=== PATIENT | female | born 1990 | race Caucasian/White ===

== ENCOUNTER 2020-10-28 07:00 | Emergency (ER) | payer BC ==
[~2020-10-28] VITALS: Ht 167.7 cm; Wt 81.3 kg
[2020-10-28] MEDS ORDERED: DICYCLOMINE 10 MG/ML (BENTYL) 2 ML AMP IM STA (07:16)
--- NOTE | 2020-10-28 07:20 | ED Abdominal Pain ---
General Stated Complaint: ABD PAIN Source of Information: Patient Exam Limitations: No Limitations History of Present Illness Date Seen by Provider: Oct 28, 2020 Time Seen by Provider: 07:10 Initial Comments Patient is a 30-year-old female who presents to the emergency department today with a chief complaint of epigastric and right upper quadrant abdominal pain onset at about 3 AM this morning. Patient states she woke up with the pain as well as some nausea. Patient states the pain is about a "10". Patient did not take any medications for the pain. She has had brief episodes similar to this in the past but nothing that has lasted quite this long. Patient has had 2 prior C-sections. She states she ate roast beef for dinner last night with some cheese. She denies vomiting. She had normal bowel movements yesterday, nonblack nonbloody. She denies any urinary complaints. She states nothing makes the pain any better really except for getting up and trying to walk around. She denies fevers, chills, productive cough shortness of breath. All other review of systems reviewed and negative except as stated above. Timing/Duration: 4-6 Hours Severity/Quality: Severe, Aching Location: RUQ, Epigastric Radiation: Back Activities at Onset: None Associated Symptoms: Nausea/Vomiting (Nausea without vomiting) Allergies and Home Medications Allergies Coded Allergies: No Known Drug Allergies (Unverified , 10/28/20) Patient Home Medication List Home Medication List Reviewed: Yes Review of Systems Review of Systems Constitutional: see HPI EENTM: No Symptoms Reported Respiratory: No Symptoms Reported Cardiovascular: No Symptoms Reported Gastrointestinal: Abdominal Pain, Nausea Genitourinary: No Symptoms Reported Musculoskeletal: no symptoms reported Skin: no symptoms reported All Other Systems Reviewed Negative Unless Noted: Yes Physical Exam Vital Signs Vital Signs - First Documented 10/28/20 07:08 Temp 37.0 Pulse 70 Resp 18 B/P (MAP) 139/101 (114) Pulse Ox 97 O2 Delivery Room Air Capillary Refill : Height/Weight/BMI Height: '" Weight: lbs. oz. kg; BMI Method: General Appearance: WD/WN, no apparent distress HEENT: PERRL/EOMI Neck: full range of motion Respiratory: lungs clear, normal breath sounds, no respiratory distress, no accessory muscle use Cardiovascular: regular rate, rhythm Gastrointestinal: normal bowel sounds, soft, tenderness (Right upper quadrant and epigastric tenderness without Le sign) Extremities: normal range of motion, normal inspection Neurologic/Psychiatric: alert, normal mood/affect, oriented x 3 Skin: normal color, warm/dry Progress/Results/Core Measures Results/Orders Lab Results Laboratory Tests Test 10/28/20 07:17 10/28/20 07:25 Range/Units White Blood Count 5.6 4.3-11.0 10^3/uL Red Blood Count 4.26 3.80-5.11 10^6/uL Hemoglobin 9.8 L 11.5-16.0 g/dL Hematocrit 32 L 35-52 % Mean Corpuscular Volume 74 L 80-99 fL Mean Corpuscular Hemoglobin 23 L 25-34 pg Mean Corpuscular Hemoglobin Concent 31 L 32-36 g/dL Red Cell Distribution Width 15.7 H 10.0-14.5 % Platelet Count 221 130-400 10^3/uL Mean Platelet Volume 10.7 9.0-12.2 fL Immature Granulocyte % (Auto) 0 % Neutrophils (%) (Auto) 60 42-75 % Lymphocytes (%) (Auto) 27 12-44 % Monocytes (%) (Auto) 10 0-12 % Eosinophils (%) (Auto) 2 0-10 % Basophils (%) (Auto) 2 0-10 % Neutrophils # (Auto) 3.3 1.8-7.8 10^3/uL Lymphocytes # (Auto) 1.5 1.0-4.0 10^3/uL Monocytes # (Auto) 0.5 0.0-1.0 10^3/uL Eosinophils # (Auto) 0.1 0.0-0.3 10^3/uL Basophils # (Auto) 0.1 0.0-0.1 10^3/uL Immature Granulocyte # (Auto) 0.0 0.0-0.1 10^3/uL Sodium Level 140 135-145 MMOL/L Potassium Level 4.0 3.6-5.0 MMOL/L Chloride Level 107 98-107 MMOL/L Carbon Dioxide Level 22 21-32 MMOL/L Anion Gap 11 5-14 MMOL/L Blood Urea Nitrogen 10 7-18 MG/DL Creatinine 0.90 0.60-1.30 MG/DL Estimat Glomerular Filtration Rate > 60 BUN/Creatinine Ratio 11 Glucose Level 102 70-105 MG/DL Calcium Level 9.6 8.5-10.1 MG/DL Corrected Calcium 9.3 8.5-10.1 MG/DL Total Bilirubin 0.5 0.1-1.0 MG/DL Aspartate Amino Transf (AST/SGOT) 11 5-34 U/L Alanine Aminotransferase (ALT/SGPT) 10 0-55 U/L Alkaline Phosphatase 37 L 40-136 U/L Total Protein 7.5 6.4-8.2 GM/DL Albumin 4.4 3.2-4.5 GM/DL Lipase 33 8-78 U/L Urine Test NEGATIVE NEGATIVE My Orders Orders - CATIE REYNA MD Ed Iv/Invasive Line Start (10/28/20 07:16) Cbc With Automated Diff (10/28/20 07:16) Comprehensive Metabolic Panel (10/28/20 07:16) Lipase (10/28/20 07:16) Hcg,Qualitative Urine (10/28/20 07:16) Dicyclomine Injection (Bentyl Injection) (10/28/20 07:16) Ondansetron Injection (Zofran Injectio (10/28/20 07:30) Medications Given in ED Current Medications Medications Dose Ordered Sig/Sherin Route Start Time Stop Time Status Last Admin Dose Admin Ondansetron HCl 4 mg ONCE ONCE IVP 10/28/20 07:30 10/28/20 07:31 DC 10/28/20 07:27 4 MG Vital Signs/I&O 10/28/20 07:08 Temp 37.0 Pulse 70 Resp 18 B/P (MAP) 139/101 (114) Pulse Ox 97 O2 Delivery Room Air Progress Progress Note : Time: 08:26 Progress Note Patient feels better after Bentyl and Zofran. Her pain is not completely relieved but is much improved. Patient's labs have been reviewed and are all within normal limits. Her exam is benign, no Le sign, negative peritoneal findings. Patient will be discharged home with a prescription for Zofran and Bentyl. She is advised to follow-up with Christine Thrasher NP her primary care provider for outpatient gallbladder ultrasound. She is given good return precautions. She verbalizes understanding. All questions are sought and answered. Patient is stable for discharge. Departure Impression Primary Impression: Abdominal pain Qualified Codes: R10.11 - Right upper quadrant pain Additional Impression: Biliary colic Disposition: 01 HOME, SELF-CARE Condition: Stable Departure-Patient Inst. Decision time for Depature: 08:27 Referrals: AURORA JAY MD (PCP) Primary Care Physician VERONA THRASHER APRN (Family) Primary Care Physician Patient Instructions: Gallbladder Diet Add. Discharge Instructions: Follow a low-fat diet over the course of the next few weeks while you are foll owing up with your primary care provider. Take the Bentyl every 6 hours, 30 minutes before eating and at bedtime as needed for pain. I have given you a prescription for Zofran, this is a nausea medication that can be taken once every 6-8 hours as needed for nausea and vomiting. Come back to the emergency room for any worsening pain especially with fever, vomiting or any other emergent, concerning symptoms. Scripts Dicyclomine HCl (Dicyclomine HCl) 20 Mg Tablet 20 MG PO Q6H PRN for abdominal pain, #60 TAB Prov: CATIE REYNA MD 10/28/20 Ondansetron (Ondansetron Odt) 4 Mg Tab.rapdis 4 MG PO Q8H for nausea, #20 TAB Prov: CATIE REYNA MD 10/28/20 CATIE REYNA MD Oct 28, 2020 07:20
[2020-10-28 07:29] LABS: BASOPHILS # (AUTO) 0.1 10^3/uL (0.0-0.1); BASOPHILS % (AUTO) 2 % (0-10); EOSINOPHILS # (AUTO) 0.1 10^3/uL (0.0-0.3); EOSINOPHILS % (AUTO) 2 % (0-10); HEMATOCRIT 32 % (35-52); HEMOGLOBIN 9.8 g/dL (11.5-16.0); LYMPHOCYTES # (AUTO) 1.5 10^3/uL (1.0-4.0); LYMPHOCYTES % (AUTO) 27 % (12-44); MEAN CORPUSCULAR HEMOGLOBIN 23 pg (25-34); MEAN CORPUSCULAR HGB CONC 31 g/dL (32-36); MEAN CORPUSCULAR VOLUME 74 fL (80-99); MEAN PLATELET VOLUME 10.7 fL (9.0-12.2); MONOCYTES # (AUTO) 0.5 10^3/uL (0.0-1.0); MONOCYTES % (AUTO) 10 % (0-12); NEUTROPHILS # (AUTO) 3.3 10^3/uL (1.8-7.8); NEUTROPHILS % (AUTO) 60 % (42-75); PLATELET COUNT 221 10^3/uL (130-400); WHITE BLOOD COUNT 5.6 10^3/uL (4.3-11.0)
[2020-10-28] MEDS ORDERED: ONDANSETRON 4 MG/2 ML (SDV) Z0FRAN IVP ONE (07:30)
[2020-10-28 07:41] LABS: ALBUMIN 4.4 GM/DL (3.2-4.5); CHLORIDE 107 MMOL/L (98-107); SODIUM 140 MMOL/L (135-145)
[2020-10-28 07:43] LABS: CALCIUM 9.6 MG/DL (8.5-10.1)
[2020-10-28 07:44] LABS: GLUCOSE 102 MG/DL (70-105); TOTAL PROTEIN 7.5 GM/DL (6.4-8.2)
[2020-10-28 07:45] LABS: CARBON DIOXIDE 22 MMOL/L (21-32)
[2020-10-28 07:46] LABS: BILIRUBIN,TOTAL 0.5 MG/DL (0.1-1.0)
[2020-10-28 07:47] LABS: ALKALINE PHOSPHATASE 37 U/L (40-136); GFR ESTIMATED > 60
[2020-10-28 07:48] LABS: BUN/CREATININE RATIO 11
[2020-10-28 07:50] LABS: ALANINE AMINOTRANSFERASE 10 U/L (0-55)
[2020-10-28 07:51] LABS: LIPASE 33 U/L (8-78)
[2020-10-28] MEDS ORDERED: ONDA4TAB11 PO (08:30)
[2020-10-28] MEDS ORDERED: DICY20TA10 PO (08:30)
[2020-10-28 08:42] VITALS: BP 131/82
[2020-10-28] MEDS ORDERED: LACTATED RINGERS 1,000 ML IV PRN (14:15)
[2020-10-28] MEDS ORDERED: ACHD5005 PO (15:31)
== END 2020-10-28 08:42 | disposition home or self-care (01) ==
LOC: ER 07:03
DX: K80.50 Calculus of bile duct without cholangitis or cholecystitis without obstruction (principal)
CPT/HCPCS: 36415; 80053; 83690; 84703; 85025

== ENCOUNTER 2020-10-28 11:16 | Observation (INO) | payer BC ==
[2020-10-28] VITALS (10 sets, daily range): BP systolic 114–132; BP diastolic 68–89
[~2020-10-28] VITALS: Ht 167 cm; Wt 79.8 kg
[~2020-10-28 11:16] MED LIST: DICY20TA10 PO; ONDA4TAB11 PO
--- NOTE | 2020-10-28 11:38 | ED Abdominal Pain ---
General Chief Complaint: Abdominal/GI Problems Stated Complaint: ABD PAIN Nursing Triage Note: AMB TO ROOM WAS DISCHARGE THIS AM FROM ED WITH ABD PAIN BACK NOW REPORTS VOMITED X1 AFTER EATING OATMEAL NOW HAVING PAIN IN BACK Sepsis Screen: No Definite Risk Source of Information: Patient Exam Limitations: No Limitations History of Present Illness Date Seen by Provider: Oct 28, 2020 Time Seen by Provider: 11:28 Initial Comments Patient is a 30-year-old female who presents to the emergency department with a chief complaint of epigastric and right upper quadrant abdominal pain. Patient was seen by me approximately 3 hours prior to this visit with similar complaints including nausea. Patient states that after she was discharged from the emergency room she went and got her prescriptions filled, she states she went home and ate some oatmeal with water and the pain recurred and is worse than it was previously. Patient is quite tearful and upset. She states the pain is a "10". Nothing makes it any better nothing could make it any worse. She states the pain is radiating straight through into her back. Labs again were reviewed from her previous visit, she had no elevated white blood cell count she was mildly anemic with a hemoglobin of 9. Liver functions including total bili were all within normal limits. However, secondary to the patient's return to the emergency room I will get the gallbladder ultrasound to rule out an acute obstruction such as stone stuck in the neck of the gallbladder. All other review of systems reviewed and negative except as stated above. Timing/Duration: 1 Hour Severity/Quality: Severe, Sharp, Stabbing, Throbbing Location: RUQ, Epigastric Radiation: Back Activities at Onset: None Associated Symptoms: Nausea/Vomiting (Nausea without vomiting) Allergies and Home Medications Allergies Coded Allergies: No Known Drug Allergies (Unverified , 10/28/20) Home Medications Dicyclomine HCl 20 Mg Tablet, 20 MG PO Q6H PRN for abdominal pain Prescribed by: CATIE REYNA on 10/28/20829 Ondansetron 4 Mg Tab.rapdis, 4 MG PO Q8H Prescribed by: CATIE REYNA on 10/28/20829 Patient Home Medication List Home Medication List Reviewed: Yes Review of Systems Review of Systems Constitutional: see HPI EENTM: No Symptoms Reported Respiratory: No Symptoms Reported Cardiovascular: No Symptoms Reported Gastrointestinal: Abdominal Pain, Nausea Genitourinary: No Symptoms Reported Musculoskeletal: no symptoms reported Skin: no symptoms reported Psychiatric/Neurological: Anxiety All Other Systems Reviewed Negative Unless Noted: Yes Past Fxkqbcj-Gbntvo-Vhdwoo Hx Patient Social History Alcohol Use: Occasionally Uses Recent Infectious Disease Expo: No Past Medical History Surgeries: Yes Section Respiratory: No Cardiac: No Neurological: No Genitourinary: No Gastrointestinal: No Musculoskeletal: No Endocrine: No HEENT: No Physical Exam Vital Signs Vital Signs - First Documented 10/28/20 11:19 Temp 36.6 Pulse 54 Resp 18 B/P (MAP) 133/93 (106) Pulse Ox 100 O2 Delivery Room Air Capillary Refill : Less Than 3 Seconds Height/Weight/BMI Height: '" Weight: lbs. oz. kg; 29.00 BMI Method: General Appearance: WD/WN, severe distress (Tearful, anxious and upset, crying) Neck: full range of motion Respiratory: lungs clear, normal breath sounds, no respiratory distress Cardiovascular: regular rate, rhythm Gastrointestinal: normal bowel sounds, soft, tenderness (Significant tenderness in the epigastrium and right upper quadrant, equivocal Le sign) Extremities: normal range of motion, normal inspection Neurologic/Psychiatric: no motor/sensory deficits, alert, oriented x 3, other (Anxious and tearful) Skin: normal color, warm/dry Progress/Results/Core Measures Results/Orders My Orders Orders - CATIE REYNA MD Ed Iv/Invasive Line Start (10/28/20 11:34) Fentanyl Inj (Sublimaze Injection) (10/28/20 11:45) Us Gallbladder [id number] (10/28/20 11:34) Medications Given in ED Current Medications Medications Dose Ordered Sig/Sherin Route Start Time Stop Time Status Last Admin Dose Admin Fentanyl Citrate 50 mcg ONCE ONCE IVP 10/28/20 11:45 10/28/20 11:46 DC 10/28/20 11:44 50 MCG Vital Signs/I&O 10/28/20 11:19 Temp 36.6 Pulse 54 Resp 18 B/P (MAP) 133/93 (106) Pulse Ox 100 O2 Delivery Room Air Blood Pressure Mean: 106 Progress Progress Note : Time: 12:14 Progress Note Patient feels much better after pain medications. Discussed with patient having her gallbladder removed today secondary to a gallbladder full of stones and possibly one stuck in the neck of the gallbladder. Patient is agreeable. Case is discussed with Dr. Garcia. Accepts patient for observation admission for cholecystectomy. Departure Communication (Admissions) Time/Spoke to Admitting Phy: 12:[address] Garcia who accepts the patient for observation for cholecystectomy Impression Primary Impression: Abdominal pain Qualified Codes: R10.13 - Epigastric pain Additional Impression: Cholelithiasis Qualified Codes: K80.70 - Calculus of gallbladder and bile duct without cholecystitis without obstruction Disposition: ADMITTED INPATIENT Condition: Stable Admissions Decision to Admit Reason: Admit from ER (General) Decision to Admit/Date: Oct 28, 2020 Time/Decision to Admit Time: 12:17 Departure-Patient Inst. Referrals: AURORA JAY MD (PCP) Primary Care Physician VERONA LOCKE APRN (Family) Primary Care Physician CATIE REYNA MD Oct 28, 2020 11:38
[2020-10-28] MEDS ORDERED: fentaNYL INJ 100 MCG/2 ML AMP IVP ONE ×3 (11:45→15:45)
--- NOTE | 2020-10-28 12:30 | Diagnostic Imaging Report ---
PROCEDURE: US Gallbladder. TECHNIQUE: Multiple Real-time grayscale images were obtained over the right upper quadrant in various projections. INDICATION: Right upper quadrant pain. COMPARISON: There are no prior studies available for comparison. FINDINGS: There are multiple shadowing gallstones within the gallbladder. The gallbladder wall thickness is at the upper limits of normal measuring 0.29 cm (normal 0.3 cm or less). There is no pericholecystic fluid to suggest acute cholecystitis and the common bile duct is not dilated. The liver does not appear to be enlarged. There is no focal mass involving the liver and the biliary tree is not abnormally distended. Spectral and color-flow imaging of the portal vein shows the vein is patent. The right kidney, aorta, and inferior vena cava are generally unremarkable. The pancreas is obscured by bowel gas. IMPRESSION: 1. There is cholelithiasis but there is no evidence for acute cholecystitis; however, if clinical concern regarding an acute abnormality of the gallbladder persists, then a Nuclear Medicine hepatobiliary scan would be recommended for further study. 2. There is no acute abnormality of the right upper quadrant noted otherwise. 3. The pancreas was not visualized due to overlying bowel gas. Dictated by: Dictated on workstation # [id number]
[2020-10-28] MEDS ORDERED: fentaNYL INJ 100 MCG/2 ML AMP IV PRN (13:30)
[2020-10-28] MEDS ORDERED: NS IV 1000 ML 1,000 ML IV SCH (13:30)
[2020-10-28] MEDS ORDERED: CATHETER FLUSH 10 ML SYR IV PRN (13:30)
[2020-10-28] MEDS ORDERED: fentaNYL INJ 100 MCG/2 ML AMP ONE (14:07)
[2020-10-28] MEDS ORDERED: MIDAZOLAM 2 MG/2 ML (VERSED) VIAL ONE (14:07)
[2020-10-28] MEDS ORDERED: LIDOCAINE/EPI 1%-1:100,000 (XYLOCAINE) 20ML ONE (14:13)
[2020-10-28] MEDS ORDERED: IOPAMIDOL 61% 30 ML (ISOVUE 300) VIAL ONE (14:13)
--- NOTE | 2020-10-28 14:14 | History & Physical-Surgical ---
History of Present Illness History of Present Illness Reason for visit/HPI Surgery asked to see pt regarding RUQ pain, cholecystitis/Cholelithiasis. HPI per ED: Patient is a 30-year-old female who presents to the emergency department with a chief complaint of epigastric and right upper quadrant abdominal pain. Patient was seen by me approximately 3 hours prior to this visit with similar complaints including nausea. Patient states that after she was discharged from the emergency room she went and got her prescriptions filled, she states she went home and ate some oatmeal with water and the pain recurred and is worse than it was previously. Patient is quite tearful and upset. She states the pain is a "10". Nothing makes it any better nothing could make it any worse. She states the pain is radiating straight through into her back. Labs again were reviewed from her previous visit, she had no elevated white blood cell count she was mildly anemic with a hemoglobin of 9. Liver functions including total bili were all within normal limits. However, secondary to the patient's return to the emergency room I will get the gallbladder ultrasound to rule out an acute obstruction such as stone stuck in the neck of the gall bladder. All other review of systems reviewed and negative except as stated above. Timing/Duration: 1 Hour Severity/Quality: Severe, Sharp, Stabbing, Throbbing Location: RUQ, Epigastric Radiation: Back Activities at Onset: None Associated Symptoms: Nausea/Vomiting (Nausea without vomiting) When I spoke to pt the pain had just come back on, 10 out of 10, only pain meds helped the pain. She states thinking back she has had pain like this "not this bad", that usually occurs after eating. It has been going on for "awhile". Date of Admission Oct 28, 2020 at 12:14 Time Seen by a Provider: 13:59 I consulted on this patient on 10/28/20 14:09 Attending Physician Mayo Penn DO Admitting Physician Tate Feliciano MD Consult Allergies and Home Medications Allergies Coded Allergies: No Known Drug Allergies (Unverified , 10/28/20) Home Medications Dicyclomine HCl 20 Mg Tablet, 20 MG PO Q6H PRN for abdominal pain Prescribed by: CATIE REYNA on 10/28/20 0830 Ondansetron 4 Mg Tab.rapdis, 4 MG PO Q8H Prescribed by: CATIE REYNA on 10/28/20 0888 Patient Home Medication List Home Medication List Reviewed: Yes Past Jwdauvx-Uefycz-Gdxisz Hx Patient Social History Smoking Status: Never a Smoker Alcohol Use?: No Have you traveled recently?: No Surgeries History of Surgeries: Yes Surgeries: Section Respiratory History of Respiratory Disorde: No Cardiovascular History of Cardiac Disorders: No Neurological History of Neurological Disord: No Reproductive System : No Genitourinary History of Genitourinary Disor: No Gastrointestinal History of Gastrointestinal Di: No Musculoskeletal History of Musculoskeletal Dis: No Endocrine History of Endocrine Disorders: No HEENT History of HEENT Disorders: No Loss of Vision: Denies Hearing Impairment: Denies Cancer History of Cancer: No Psychosocial History of Psychiatric Problem: No Integumentary History of Skin or Integumenta: No Family Medical History Significant Family History: Diabetes (mother) Review of Systems Constitutional: No chills, No diaphoresis, No weakness EENTM: No blurred vision, No double vision, No mouth pain, No mouth swelling, No epistaxis Respiratory: No cough, No dyspnea on exertion, No short of breath Cardiovascular: No chest pain, No edema, No palpitations Gastrointestinal: abdominal pain (RUQ); No hematemesis; loss of appetite, nausea; No vomiting Genitourinary: No dysuria, No frequency, No hematuria Musculoskeletal: No joint pain, No joint swelling, No muscle pain, No muscle stiffness Skin: No change in color, No change in hair/nails Psychiatric/Neurological: Denies Anxiety, Denies Depressed, Denies Seizure, Denies Tremors Pt denies any hx of abnormal bleeding or bruising Physical Exam Vital Signs Vital Signs - First Documented 10/28/20 11:19 Temp 36.6 Pulse 54 Resp 18 B/P (MAP) 133/93 (106) Pulse Ox 100 O2 Delivery Room Air Capillary Refill : Less Than 3 Seconds Height, Weight, BMI Height: '" Weight: lbs. oz. kg; 28.61 BMI Method: General Appearance: WD/WN, Moderate Distress Eyes: Bilateral Eye PERRL, Bilateral Eye EOMI HEENT: Pharynx Normal, Moist Mucous Membranes; No Pale Conjunctivae (L), No Pale Conjunctivae (R) Neck: Full Range of Motion, Supple Respiratory: Lungs Clear, Normal Breath Sounds, No Accessory Muscle Use, No Respiratory Distress Cardiovascular: Regular Rate, Rhythm, No Murmur Gastrointestinal: Normal Bowel Sounds, No Organomegaly, Soft, Tenderness Back: No CVA Tenderness, No Vertebral Tenderness Extremity: Non Tender, No Calf Tenderness, No Pedal Edema Neurologic/Psychiatric: Alert, Oriented x3, No Motor/Sensory Deficits, Normal Mood/Affect, 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 TECHNIQUE: Multiple Real-time grayscale images were obtained over the right upper quadrant in various projections. INDICATION: Right upper quadrant pain. COMPARISON: There are no prior studies available for comparison. FINDINGS: There are multiple shadowing gallstones within the gallbladder. The gallbladder wall thickness is at the upper limits of normal measuring 0.29 cm (normal 0.3 cm or less). There is no pericholecystic fluid to suggest acute cholecystitis and the common bile duct is not dilated. The liver does not appear to be enlarged. There is no focal mass involving the liver and the biliary tree is not abnormally distended. Spectral and color-flow imaging of the portal vein shows the vein is patent. The right kidney, aorta, and inferior vena cava are generally unremarkable. The pancreas is obscured by bowel gas. IMPRESSION: 1. There is cholelithiasis but there is no evidence for acute cholecystitis; however, if clinical concern regarding an acute abnormality of the gallbladder persists, then a Nuclear Medicine hepatobiliary scan would be recommended for further study. 2. There is no acute abnormality of the right upper quadrant noted otherwise. 3. The pancreas was not visualized due to overlying bowel gas. Dictated on workstation # [id number] Dict: 10/28/20 1224 Trans: 10/28/20 1230 [id number] Interpreted by: MARICARMEN NUNEZ MD Assessment/Plan Assessment/Plan Admission Diagonsis Acute Cholecystitis with Cholelithiasis Admission Status: Observation Assessment/Plan Acute Cholecystitis with Cholelithiasis Pt is in moderate to severe distress from pain caused by her cholelithiasis. Plan is to take her to the OR for laparoscopic cholecystectomy, possible cholangiogram, possible open. Will get consent, IV ABX security professionals to OR, pain meds and anti-emetics as needed. Discussed risks and complications with pt; not limited to pain, bleeding, infection, scar, damage to bowel or bile duct and need for further procedure. All questions answered to her satisfaction. MAYO PENN DO Oct 28, 2020 14:14
[2020-10-28] MEDS ORDERED: ceFAZolin 2 GM IV Premixed 50 ML IV NR (14:15)
[2020-10-28] MEDS ORDERED: proPOfol 200 MG/20 ML (DIPRIVAN) VIAL IV ONE (15:14)
[2020-10-28] MEDS ORDERED: SEVOFLURANE (ULTANE) 15 ML INHAL SOLN ONE (15:14)
[2020-10-28] MEDS ORDERED: ONDANSETRON 4 MG/2 ML (SDV) Z0FRAN ONE (15:14)
[2020-10-28] MEDS ORDERED: LIDOCAINE PF 2% 5 ML (XYLOCAINE) VIAL ONE (15:14)
[2020-10-28] MEDS ORDERED: NEOSTIGMINE 3 MG/3 ML VIAL ONE (15:15)
[2020-10-28] MEDS ORDERED: GLYCOPYRROLATE 0.2 MG/ML (ROBINUL) 2 ML VIAL ONE (15:15)
[2020-10-28] MEDS ORDERED: SUGAMMADEX 500 MG/5 ML VIAL (BRIDION) IV ONE (15:18)
[2020-10-28] MEDS ORDERED: ROCURONIUM 10 MG/ML 5 ML SYRINGE IV ONE (15:19)
--- NOTE | 2020-10-28 15:30 | Progress Note-Post Operative ---
Post-Operative Progess Note Surgeon (s)/Mogul Operator (s) Surgeon MAYO PENN DO Mogul Operator: Korina Pre-Operative Diagnosis Acute Kika/kika Post-Operative Diagnosis same plus left ovarian cyst Procedure & Operative Findings Date of Procedure 10/28/20 Procedure Performed/Findings PROCEDURE: Laparoscopic cholecystectomy with intraoperative cholangiogram. COMPLICATIONS: None. PROCEDURE: The patient was taken to the operating suite and was prepped and draped in sterile fashion. A surgical pause was performed. Just superior to the umbilicus, a 12 mm incision was made. Dissection was taken down to the fascia, which was then scored and grasped with a Carmen and the abdomen was then entered. A 0 Vicryl suture was placed in a ecbrua-[id number]-[id number] fashion and a Constantino trocar was placed and secured. Pneumoperitoneum was achieved. A 5mm trochar place in the subxyphoid and 2 in the right upper quadrant. The gallbladder was then grasped and elevated. It was noted to be inflamed and edematous; appeared to be acute cholecystitis. The cystic duct, and cystic artery were then dissected out. Clip was placed on the distalportion of the cystic duct which was then partially transected. An arrow catheter was inserted into the duct. The cholangiogram was then performed. No filing defects and contrast made its way into the duodenum. Catheter removed. Clips were placed on proximal portion of the cystic duct and then the duct was then transected. Clips were placed along the proximal and distal portion of the cystic artery which was then transected. Hook cautery was used to dissect the gallbladder from the gallbladder fossa achieving hemostasis. The gallbladder was placed in an Endobag and removed through the 12 mm trocar site. The abdomen was then reinspected. Copious amounts of irrigation were used to irrigate the abdomen and there were no signs of active bleeding. Hemostasis had been achieved. The 12 mm fascial defect was then closed with 0 Vicryl suture that had been placed in a [id number] fashion. The abdomen was then desufflated, the trocars were removed. The abdomen was then washed and dried. The skin was then closed using 4-0 Monocryl in a subcuticular fashion. The abdomen was washed and dried and Skin Affix was place over incisions. Patient tolerated the procedure well without any complications and was taken to the recovery room in stable condition. Dr. Hui assisted on this case helping to make incisions, close incisions, identify anatomy and hold anatomy out of the way. Anesthesia Type GET Estimated Blood Loss Estimated blood loss (mL): scant Specimens/Packing Specimens Removed gb and contents MAYO PENN DO Oct 28, 2020 15:30
[2020-10-28] MEDS ORDERED: ACHD5005 PO (15:31)
--- NOTE | 2020-10-28 15:32 | Discharge Inst-Surgical ---
Discharge Inst-Surgical Depart Medication/Instructions New, Converted or Re-Newed RX: RX Given to Pt/Family Patient Instructions Follow up Appt: Make appointment for 1 week. [phone] Instructions: No lifting greater than 20 pounds. No strenuous activity. May shower in 24 hours, no tub bath or soaking. Use incentive spirometer at home as directed. No Smoking Skin/Wound Care: May remove bandages in am. You need to leave the Dermabond on incision it will fall off on it's own. Symptoms to Report: Appetite Changes, Extremity Discoloration, Numbness/Tingling, Swelling Increased, Bleeding Excessive, Eyesight Changes, Pain Increased, Urine Color Change, Constipation(Persistent), Fever over 101 degree F, Pain/Pressure in chest, Urinating Difficulty, Cough Up/Vomit Blood, Heart Beat Irreg/Pounding, Pain/Pressure in jaw, Cramps in feet or legs, Lightheadedness, Pain/Pressure in shoulder, Diarrhea(Persistent), Memory Changes Suddenly, Questions/Concerns, Weight gain consecutive days, Dizziness/Fainting, Nausea/Vomiting, Shortness of Breath, Weight gain over 2 pounds If questions or concerns contact your physician Or seek help at emergency department. Activity Activity as Tolerated: Yes Activity Instructions: Avoid Stress to Incision Driving Instructions: No Driving/Refer to Diet Discharge Diet: Avoid Fatty Foods, Low Fat/Low Cholesterol If Any Problems/Questions/Issu: Contact Your Physician, Go to Emergency Room Skin/Wound Care Infection Signs and Symptoms: Increased Redness, Foul Odor of Wound, Increased Drainage, Skin Itchy or Has a Rash, Increased Swelling, Temperature Above 101 F Wound Care Comment: heating pad to shoulder or neck tonight for pain Bathing Instructions: Shower Stitches/Susanna/Dermabond Dis: Dermabond Ice Pack: Ice On and Off Site MAYO PENN DO Oct 28, 2020 15:32
[2020-10-28] MEDS ORDERED: morphine INJ 10 MG/ML 1ML (SYR OR VIAL) IVP ONE (15:45)
[2020-10-28] MEDS ORDERED: MEPERIDINE (DEMEROL) INJ 50 MG/ML IVP ONE (15:45)
[2020-10-28] MEDS ORDERED: ONDANSETRON 4 MG/2 ML (SDV) Z0FRAN IVP PRN (15:45)
[2020-10-28] MEDS ORDERED: RT-ALBUTEROL SULF 2.5 MG/3 ML PRE-MIX VIAL INH PRN (16:00)
--- NOTE | 2020-10-28 16:28 | Diagnostic Imaging Report ---
EXAMINATION: Fluoroscopy at 1 hour. INDICATION: Abdominal pain. Fluoroscopic assistance was provided for Dr. Garcia for a laparoscopic cholecystectomy procedure. 15.6 seconds of fluoroscopy time was utilized. 93 spot films were obtained. There has been opacification of the common bile duct via a cystic duct catheter. The common bile duct does not appear to be dilated and there is no definite defect within the duct to suggest a retained calculus. There is contrast extending into the small bowel. Some contrast is also extravasated into the right upper quadrant. IMPRESSION: Fluoroscopic assistance was provided for Dr. Garcia. Dictated by: Dictated on workstation # [id number]
--- NOTE | 2020-10-28 17:18 | Anesthesia-General Post-Op ---
General Patient Condition Mental Status/LOC: Same as Preop Cardiovascular: Satisfactory Nausea/Vomiting: Absent Respiratory: Satisfactory Pain: Controlled Complications: Absent Post Op Complications Complications None Follow Up Care/Instructions Patient Instructions None needed. Anesthesia/Patient Condition Patient Condition Patient is doing well, no complaints, stable vital signs, no apparent adverse anesthesia problems. No complications reported per nursing. ROBI GIVENS CRNA Oct 28, 2020 17:18
== END 2020-10-28 18:40 | disposition home or self-care (01) ==
LOC: EDUNIT# 11:16 → ER 11:17 → 4TH 12:14
PROVIDERS: ADMIT Surgery; ATTEND Surgery
DX: K80.12 Calculus of gallbladder with acute and chronic cholecystitis without obstruction (principal); D64.9 Anemia, unspecified; Z79.899 Other long term (current) drug therapy
CPT/HCPCS: 76000; 76705; 87081; 87636